=== PATIENT | female | born 1995 | race Caucasian/White ===

== ENCOUNTER 2021-05-08 09:37 | Inpatient (IN) | payer BC ==
[~2021-05-08 09:37] MED LIST: Bupivacaine 0.25% HCL 30 ML VIAL ONE; Bupivacaine PF 0.5% 30 ML VIAL ONE
[2021-05-08] MEDS ORDERED: Ondansetron PF 4 MG/2 ML Vial IVP PRN ×3 (09:44→19:59)
[2021-05-08] MEDS ORDERED: Butorphanol Tartrate 1 MG/ML VIAL SLOW IVP PRN (09:44)
[2021-05-08] MEDS ORDERED: Lidocaine 1% (PF) 30 ML VIAL SC PRN (09:44)
[2021-05-08] MEDS ORDERED: Acetaminophen 500 MG TAB PO PRN (09:44)
[2021-05-08] MEDS ORDERED: Ibuprofen 800 MG TAB PO PRN (09:44)
[2021-05-08] MEDS ORDERED: Misoprostol 200 MCG TAB PR PRN (09:44)
[2021-05-08] MEDS ORDERED: Diphenoxylate HCl/Atropine Tablet PO PRN ×2 (09:44)
[2021-05-08] MEDS ORDERED: HYDROcodone/Acetaminophen 5/325 mg Tablet PO PRN ×2 (09:44)
[2021-05-08] MEDS ORDERED: hydrALAZINE 20 MG/ML VIAL SLOW IVP PRN ×2 (09:44→19:59)
[2021-05-08] MEDS ORDERED: Promethazine HCl 25 MG/ML VIAL IM PRN ×2 (09:44→12:15)
[2021-05-08] MEDS ORDERED: Docusate 100 MG CAP PO PRN (09:44)
[2021-05-08] MEDS ORDERED: NS w/ Oxytocin 30 units 500 ML IV SCH ×3 (09:45→20:00)
[2021-05-08] MEDS ORDERED: NS w/ Oxytocin 30 units 500 ML IVPB SCH (09:45)
[2021-05-08 10:24] VITALS: BMI 28.3
[2021-05-08] MEDS: Lactated Ringer's 1,000 ML IV SCH ×2 (10:30→12:06)
[2021-05-08] MEDS ORDERED: Fentanyl 2 mcg/Bup 0.1% Cadd 100 ML ONE (10:49)
[2021-05-08 10:52] LABS: Hemoglobin 12.2 g/dL (12.0-15.5); Mean Corpuscular HGB CONC 34.5 g/dL (32.0-36.0); Mean Corpuscular Hemoglobin 30.4 pg (27.0-33.0); Mean Corpuscular Volume 88.3 fl (81.6-98.3); Mean Platelet Volume 11.3 fl (7.4-10.4); Platelet Count 152 10x3/uL (150-450); RBC Distribution Width 12.6 % (11.5-14.5); Red Blood Cell (RBC) Count 4.01 10x6/uL (3.90-5.03); White Blood Cell (WBC) Count 7.1 10x3/uL (3.5-10.5)
[2021-05-08 11:23] LABS: HIV (1/2) Antibody/Antigen Non-Reactive (NonReactive); HIV 1/2 INDEX 0.08 S/CO (<1.00); Hep B Surf Ag Non-Reactive S/CO (NonReactive)
[2021-05-08 11:31] LABS: HBSAg Index 0.19 S/CO (0-0.99)
[2021-05-08 11:44] LABS: SARS-CoV-2 NAA Rapid Test Not Detected (NotDetected)
[2021-05-08] MEDS ORDERED: ePHEDrine Sulfate 50 MG/10 ML VIAL SLOW IVP PRN (12:15)
[2021-05-08] MEDS ORDERED: Hydrocerin (Eucerin) Cream 120 gm Jar TOP PRN (12:15)
[2021-05-08] MEDS ORDERED: Naloxone HCl 0.4 mg/ml Vial IVP PRN ×2 (12:15)
[2021-05-08] MEDS ORDERED: Fentanyl 2 mcg/Bupivacaine 0.1% Cassette 100 ML EPIDURAL SCH (12:15)
[2021-05-08] MEDS ORDERED: diphenhydrAMINE 50 MG/ML VIAL IVP PRN (12:15)
[2021-05-08] MEDS ORDERED: Acetaminophen 325 MG TAB PO PRN (12:15)
[2021-05-08] MEDS ORDERED: Communication Order-Pharmacy FS SCH (12:15)
[2021-05-08] MEDS ORDERED: Lactated Ringer's 1,000 ML IV PRN (12:45)
[2021-05-08 12:47] LABS: Syphilis Antibody Nonreactive (Nonreactive); Syphilis Antibody Index 0.05 S/CO (<1.00 Non-Reactive)
[2021-05-08] MEDS ORDERED: Zolpidem Tartrate 5 MG TAB PO PRN (19:59)
[2021-05-08] MEDS ORDERED: Preparation H Ointment 28 GM TUBE PR PRN (19:59)
[2021-05-08] MEDS ORDERED: Benzocaine-Menthol 82.5 ML CAN TOP PRN (19:59)
[2021-05-08] MEDS ORDERED: Acetaminophen/Codeine 30-300mg Tablet PO PRN ×2 (19:59)
[2021-05-08] MEDS ORDERED: Lanolin Ointment 7 GM TUBE TOP PRN (19:59)
[2021-05-08] MEDS ORDERED: diphenhydrAMINE 25 MG CAP PO PRN (19:59)
[2021-05-08] MEDS ORDERED: Misoprostol 200 MCG TAB VAG PRN (19:59)
[2021-05-08] MEDS ORDERED: Milk Of Magnesia 30 ML UDCUP PO PRN (19:59)
[2021-05-08] MEDS ORDERED: Bisacodyl 10 MG SUPP PR PRN (19:59)
[2021-05-09] MEDS: Ibuprofen 800 MG TAB PO SCH ×4 (03:37→20:04)
[2021-05-09 06:21] LABS: Hemoglobin 10.3 g/dL (12.0-15.5); Mean Corpuscular HGB CONC 33.1 g/dL (32.0-36.0); Mean Corpuscular Hemoglobin 29.9 pg (27.0-33.0); Mean Corpuscular Volume 90.1 fl (81.6-98.3); Mean Platelet Volume 11.8 fl (7.4-10.4); Platelet Count 139 10x3/uL (150-450); RBC Distribution Width 12.7 % (11.5-14.5); Red Blood Cell (RBC) Count 3.45 10x6/uL (3.90-5.03); White Blood Cell (WBC) Count 12.6 10x3/uL (3.5-10.5)
[2021-05-09] MEDS: Ferrous Sulfate 325 MG TAB PO SCH ×2 (08:05→17:55)
[2021-05-09] MEDS: Docusate Calcium (SURFAK) 240 MG CAP PO SCH ×3 (08:42→20:08)
[2021-05-09] MEDS: Prenatal Vitamin 1 TAB PO SCH (08:42)
[2021-05-09] MEDS ORDERED: Boostrix 0.5 ML (Tdap) VIAL IM ONE (19:59)
[2021-05-10] MEDS: Ibuprofen 800 MG TAB PO SCH ×3 (05:11→20:14)
[2021-05-10] MEDS: Ferrous Sulfate 325 MG TAB PO SCH ×2 (09:22→13:19)
[2021-05-10] MEDS: Prenatal Vitamin 1 TAB PO SCH (09:24)
[2021-05-10] MEDS: Docusate Calcium (SURFAK) 240 MG CAP PO SCH ×2 (09:24→20:15)
[2021-05-11] MEDS: Ibuprofen 800 MG TAB PO SCH (06:45)
[2021-05-11] MEDS: Docusate Calcium (SURFAK) 240 MG CAP PO SCH (07:48)
[2021-05-11] MEDS: Ferrous Sulfate 325 MG TAB PO SCH (07:48)
[2021-05-11] MEDS: Prenatal Vitamin 1 TAB PO SCH (07:48)
[2021-05-11 07:57] VITALS: BP 116/74; TEMP 98.8
== END 2021-05-11 11:15 | disposition home or self-care (01) | DRG 807 ==
LOC: CSHLD 09:37 → CSHPP 23:20
PROVIDERS: ADMIT Obstetrics & Gynecology; ATTEND Obstetrics & Gynecology
PROC: 10D07Z6 Extraction of Products of Conception, Vacuum, Via Natural or Artificial Opening (ICD-10-PCS; principal; 2021-05-08)
PROC: 0KQM0ZZ Repair Perineum Muscle, Open Approach (ICD-10-PCS; 2021-05-08)
PROC: 0W8NXZZ Division of Female Perineum, External Approach (ICD-10-PCS; 2021-05-08)
PROC: 10907ZC Drainage of Amniotic Fluid, Therapeutic from Products of Conception, Via Natural or Artificial Opening (ICD-10-PCS; 2021-05-08)
DX: O70.1 Second degree perineal laceration during delivery (principal); Z37.0 Single live birth; Z3A.39 39 weeks gestation of pregnancy; Z20.822 Contact with and (suspected) exposure to COVID-19
CPT/HCPCS: 36415; 51702; 85027; 86780; 86850; 86900; 86901; 87340; 87389; J2405; J2590; J7120; S0020; U0002

== ENCOUNTER 2023-08-02 09:43 | Inpatient (IN) | payer BC ==
[2023-08-02 10:46] VITALS: BMI 28.7
[2023-08-02] MEDS ORDERED: Promethazine HCl 25 MG/ML VIAL IM PRN ×2 (11:19→11:49)
[2023-08-02] MEDS ORDERED: fentaNYL 50 mcg/mL 1 mL Vial SLOW IVP PRN (11:19)
[2023-08-02] MEDS ORDERED: HYDROcodone/Acetaminophen 5/325 mg Tablet PO PRN ×3 (11:19→17:37)
[2023-08-02] MEDS ORDERED: Acetaminophen 500 MG TAB PO PRN (11:19)
[2023-08-02] MEDS ORDERED: Ibuprofen 800 MG TAB PO PRN (11:19)
[2023-08-02] MEDS ORDERED: Methylergonovine 0.2 MG/ML VIAL IM PRN (11:19)
[2023-08-02] MEDS ORDERED: hydrALAZINE 20 MG/ML VIAL SLOW IVP PRN ×2 (11:19→17:37)
[2023-08-02] MEDS ORDERED: Ondansetron PF 4 MG/2 ML Vial IVP PRN ×3 (11:19→17:37)
[2023-08-02] MEDS ORDERED: Oxytocin 30 units/NS 500 ML 500 ML IV SCH ×2 (11:19)
[2023-08-02] MEDS ORDERED: Misoprostol 200 MCG TAB PR PRN (11:19)
[2023-08-02] MEDS ORDERED: Diphenoxylate HCl/Atropine Tablet PO PRN ×2 (11:19)
[2023-08-02] MEDS ORDERED: Carboprost 250 MCG/ML AMP IM PRN (11:19)
[2023-08-02] MEDS ORDERED: Docusate 100 MG CAP PO PRN (11:19)
[2023-08-02] MEDS: fentaNYL/Ropivacaine Epidural 100 ML ONE (11:29)
[2023-08-02] MEDS: Lactated Ringer's 1,000 ML IV SCH (11:43)
[2023-08-02] MEDS: Oxytocin 30 units/NS 500 ML 500 ML IV SCH (11:43)
[2023-08-02 11:45] LABS: Hematocrit 34.1 % (34.9-44.5); Mean Corpuscular HGB CONC 35.2 g/dL (32.0-36.0); Mean Corpuscular Hemoglobin 29.9 pg (27.0-33.0); Mean Platelet Volume 11.3 fl (7.4-10.4); Platelet Count 182 10x3/uL (150-450); RBC Distribution Width 13.8 % (11.5-14.5); Red Blood Cell (RBC) Count 4.01 10x6/uL (3.90-5.03)
[2023-08-02] MEDS ORDERED: Naloxone HCl 0.4 mg/ml Vial IVP PRN ×2 (11:49)
[2023-08-02] MEDS ORDERED: Acetaminophen 325 MG TAB PO PRN (11:49)
[2023-08-02] MEDS ORDERED: diphenhydrAMINE 50 MG/ML VIAL IVP PRN (11:49)
[2023-08-02] MEDS ORDERED: ePHEDrine Sulfate 50 MG/10 ML VIAL SLOW IVP PRN (11:49)
[2023-08-02] MEDS ORDERED: Lactated Ringer's 500 ML IV PRN (11:49)
[2023-08-02] MEDS ORDERED: Moisturizing Cream (Eucerin) 113 GM JAR TOP PRN (11:49)
[2023-08-02] MEDS ORDERED: Communication Order-Pharmacy FS SCH (12:00)
[2023-08-02 12:05] LABS: HBSAg Index 0.22 S/CO (0-0.99); Hep B Surf Ag - L&D Non-Reactive S/CO (NonReactive)
[2023-08-02 12:07] LABS: Syphilis Antibody Nonreactive (Nonreactive); Syphilis Antibody Index 0.07 S/CO (<1.00 Non-Reactive)
[2023-08-02 12:08] LABS: HIV (1/2) Antibody/Antigen Non-Reactive (NonReactive); HIV 1/2 INDEX 0.15 S/CO (<1.00)
[2023-08-02] MEDS ORDERED: Milk Of Magnesia 30 ML UDCUP PO PRN (17:37)
[2023-08-02] MEDS ORDERED: diphenhydrAMINE 25 MG CAP PO PRN (17:37)
[2023-08-02] MEDS ORDERED: Bisacodyl 10 MG SUPP PR PRN (17:37)
[2023-08-02] MEDS ORDERED: Lanolin Ointment 7 GM TUBE TOP PRN (17:37)
[2023-08-02] MEDS ORDERED: Misoprostol 200 MCG TAB VAG PRN (17:37)
[2023-08-02] MEDS: Lidocaine 1% (PF) 30 ML VIAL SC PRN (17:37)
[2023-08-02] MEDS ORDERED: Zolpidem Tartrate 5 MG TAB PO PRN (17:37)
[2023-08-02] MEDS ORDERED: Preparation H Ointment 28 GM TUBE PR PRN (17:37)
[2023-08-02] MEDS: Oxytocin 30 units/NS 500 ML 500 ML ONE (20:39)
[2023-08-02] MEDS: Docusate 100 MG CAP PO SCH (21:11)
[2023-08-02] MEDS: Ibuprofen 800 MG TAB PO SCH (21:11)
[2023-08-03] MEDS: Benzocaine-Menthol 82.5 ML CAN TOP PRN (00:23)
[2023-08-03] MEDS: Witch Hazel-Glycerin 1 EACH JAR TOP PRN (00:24)
[2023-08-03 03:41] LABS: Hematocrit 28.7 % (34.9-44.5); Hemoglobin 9.8 g/dL (12.0-15.5); Mean Corpuscular HGB CONC 34.1 g/dL (32.0-36.0); Mean Corpuscular Volume 84.9 fl (81.6-98.3); Mean Platelet Volume 10.3 fl (7.4-10.4); Platelet Count 147 10x3/uL (150-450); RBC Distribution Width 14.1 % (11.5-14.5); Red Blood Cell (RBC) Count 3.38 10x6/uL (3.90-5.03); White Blood Cell (WBC) Count 9.7 10x3/uL (3.5-10.5)
[2023-08-03] MEDS: Boostrix 0.5 ML (Tdap) VIAL (>/=7 yrs of age) IM ONE (07:21)
[2023-08-03] MEDS: Ferrous Sulfate 325 MG TAB PO SCH (08:40)
[2023-08-03] MEDS: HYDROcodone/Acetaminophen 5/325 mg Tablet PO PRN (12:08)
[2023-08-03 16:46] VITALS: BP 111/70; TEMP 97.8
== END 2023-08-03 19:16 | disposition home or self-care (01) | DRG 807 ==
LOC: CSHLD 09:43 → CSHPP 20:10
PROVIDERS: ADMIT Obstetrics & Gynecology; ATTEND Obstetrics & Gynecology
PROC: 10E0XZZ Delivery of Products of Conception, External Approach (ICD-10-PCS; principal; 2023-08-02)
PROC: 0KQM0ZZ Repair Perineum Muscle, Open Approach (ICD-10-PCS; 2023-08-02)
PROC: 10907ZC Drainage of Amniotic Fluid, Therapeutic from Products of Conception, Via Natural or Artificial Opening (ICD-10-PCS; 2023-08-02)
PROC: 4A1HXCZ Monitoring of Products of Conception, Cardiac Rate, External Approach (ICD-10-PCS; 2023-08-02)
DX: O99.02 Anemia complicating childbirth (principal); Z37.0 Single live birth; O70.1 Second degree perineal laceration during delivery; Z3A.39 39 weeks gestation of pregnancy; O76 Abnormality in fetal heart rate and rhythm complicating labor and delivery
CPT/HCPCS: 36415; 51702; 85027; 86780; 86850; 86900; 86901; 87340; 87389; J2001; J2590; J7120